=== PATIENT | male | born 1950 | race Caucasian/White ===

== ENCOUNTER 2020-09-27 15:43 | Emergency (ER) | payer OTHER ==
[~2020-09-27] VITALS: Ht 180.3 cm; Wt 81.6 kg
[2020-09-27] MEDS ORDERED: SODIUM BICARBONATE 8.4 % INJ 50ML VIAL IV ONE (15:44)
[2020-09-27] MEDS ORDERED: EPINEPHrine HCL 1 MG/10 ML SYRG IV ONE (15:44)
[2020-09-27] MEDS ORDERED: NOREPINEPHRINE 8 MG/250ML KIT 250 ML IV ONE (15:52)
[2020-09-27] MEDS ORDERED: NOREPINEPHRINE 8 MG/250ML KIT 250 ML IV SCH ×2 (16:00)
[2020-09-27] MEDS ORDERED: DOPamine 1600MCG/ML D5W 250 ML IV SCH (16:00)
[2020-09-27] MEDS ORDERED: EPINEPHrine HCL 250 ML IV SCH ×2 (16:00→16:15)
[2020-09-27] MEDS ORDERED: PHENYLEPHRINE IV 250 ML IV ONE (16:04)
[2020-09-27 16:05] VITALS: BP 46/24
[2020-09-27] MEDS ORDERED: PHENYLEPHRINE IV 250 ML IV SCH (16:15)
[2020-09-27 16:52] LABS: Hematocrit 25.9 % (41.0-53.0); Hemoglobin 7.6 g/dL (13.5-17.5); Mean Corpuscular Hemoglobin 36.6 pg (28.0-32.0); Mean Corpuscular Hgb Conc. 29.2 g/dL (32.0-36.0); Mean Corpuscular Volume 125.6 fL (80.0-100.0); Red Blood Cells 2.07 10^6/uL (4.5-5.90); Red Cell Distribution Width 15.5 % (11.8-14.3); White Blood Cell 5.3 10^3/uL (4.4-10.8)
[2020-09-27 16:57] LABS: Basophils % (manual) 0 (0.0-2.0); Blast Cells 0; Promyelocytes % 0; Reactive Lymphocytes 0
[2020-09-27 17:19] LABS: Albumin 2.1 g/dL (3.4-5.0); BUN/Creatinine Ratio 11.2; Magnesium 1.7 mg/dL (1.6-2.6)
[2020-09-27 17:26] LABS: Bilirubin, Total 0.8 mg/dL (0.2-1.0); Total Protein 5.2 g/dL (6.4-8.2)
[2020-09-27 17:35] LABS: Lactic Acid w/Reflex 27.5 mmol/L (0.4-2.0)
[2020-09-27 17:57] LABS: Potassium 6.1 mmol/L (3.5-5.1)
[2020-09-27 18:01] LABS: Band Neutrophils % (manual) 13; Eosinophils % (manual) 1 (0-7); Lymphocytes % (manual) 41 (10.0-50.0); Metamyelocytes % 1; Monocytes % (manual) 1 (0-12); Myelocytes % 1
== END 2020-09-27 16:40 ==
LOC: EDBD 15:43 → ER 15:43
DX: I46.9 Cardiac arrest, cause unspecified (principal); J96.90 Respiratory failure, unspecified, unspecified whether with hypoxia or hypercapnia; Z88.0 Allergy status to penicillin; Z88.2 Allergy status to sulfonamides
CPT/HCPCS: 31500; 36415; 36556; 36600; 80053; 82805; 83605; 83735; 83880; 84484; 85007; 85027; 87040; 87077; 87186; 92950; 93005; 99285; J0171; J2370; 94002